=== PATIENT | female | born 1960 | race Caucasian/White ===

== ENCOUNTER 2017-03-19 12:12 | Emergency (ER) | payer MEDICAID ==
[~2017-03-19] VITALS: Ht 167.6 cm; Wt 74.8 kg
== END 2017-03-19 15:04 | disposition home or self-care (01) ==
LOC: ED 12:12
DX: S93.691A Other sprain of right foot, initial encounter (principal); F17.200 Nicotine dependence, unspecified, uncomplicated; W01.0XXA Fall on same level from slipping, tripping and stumbling without subsequent striking against object, initial encounter; Y93.01 Activity, walking, marching and hiking; Y92.89 Other specified places as the place of occurrence of the external cause; Y99.8 Other external cause status

== ENCOUNTER 2017-06-02 19:51 | Emergency (ER) | payer MEDICAID ==
[~2017-06-02] VITALS: Ht 167.6 cm; Wt 74.8 kg
[2017-06-02] MEDS ORDERED: PREDNISONE50 MG PO (20:14)
[2017-06-02] MEDS ORDERED: AVPAK AZITHROM250 M1 PO (20:14)
== END 2017-06-02 20:15 | disposition home or self-care (01) ==
LOC: ED 19:51
DX: J40 Bronchitis, not specified as acute or chronic (principal); F17.200 Nicotine dependence, unspecified, uncomplicated; J02.9 Acute pharyngitis, unspecified

== ENCOUNTER → 2017-06-26 | Outpatient (CLI) | payer OTHER ==
[~2017-06-26] MED LIST: AVPAK AZITHROM250 M1 PO; PREDNISONE50 MG PO
[2017-06-26 15:57] LABS: BASO # 0.1 10*3/uL (0.0-0.1); BASO % 0.5 % (0.0-1.0); EOS # 0.2 10*3/uL (0.0-0.4); EOS % 2.3 % (1.0-4.0); HEMATOCRIT 44.5 % (37.0-47.0); HEMOGLOBIN 14.3 g/dl (12.0-16.0); LYMPH # 4.3 10*3/uL (1.3-4.4); LYMPH % 43.5 % (27.0-41.0); MEAN CELL VOLUME 88.6 fl (81.0-99.0); MEAN CORPUSCULAR HGB 28.5 pg (27.0-31.0); MEAN CORPUSCULAR HGB CONC 32.1 g/dl (33.0-37.0); MEAN PLATELET VOLUME 10.2 fl (9.6-12.3); MONO # 0.6 10*3/uL (0.1-1.0); MONO % 5.8 % (3.0-9.0); NEUT # 4.7 10*3/uL (2.3-7.9); NEUT % 47.6 % (47.0-73.0); PLATELET COUNT AUTOMATED 296 10*3/uL (130-400); RED BLOOD COUNT 5.02 10*6/uL (4.10-5.10); RED CELL DISTRI WIDTH 14.7 % (0-14.5); WHITE BLOOD COUNT 9.8 10*3/uL (4.8-10.8)
[2017-06-26 16:32] LABS: ALBUMIN 3.8 gm/dl (3.1-4.5); BUN 7 mg/dl (7-24); CHLORIDE 104 mmol/L (98-107); POTASSIUM 3.8 mmol/L (3.5-5.1); SODIUM 139 mmol/L (136-145)
[2017-06-26 16:45] LABS: ALKALINE PHOSPHATASE 158 U/L (45-117); CHOLESTEROL 215 mg/dL (<200); CREATININE 0.82 mg/dL (0.55-1.02); HDL CHOLESTEROL 65 mg/dl (40-60); LDL CHOLESTEROL 88 mg/dL (9-159); SGOT/AST 12 IU/L (3-35); SGPT/ALT 23 U/L (12-78); TOTAL PROTEIN 7.3 gm/dL (6.4-8.2); TRIGLYCERIDES 309 mg/dl (<150); VLDL CHOLESTEROL 62 mg/dL (6-40)
== END | disposition home or self-care (01) ==
LOC: RESCLI 01:29 → LAB 01:29 → RESCLI 10:50
PROVIDERS: Internal Medicine
DX: Z76.89 Persons encountering health services in other specified circumstances (principal)

== ENCOUNTER 2017-10-27 08:35 | Emergency (ER) | payer OTHER ==
[~2017-10-27] VITALS: Ht 167.6 cm; Wt 70.3 kg
[2017-10-27] MEDS ORDERED: ZOVIRAX800 MG PO (09:07)
[2017-10-27] MEDS ORDERED: Motrin,Rufen800 MG PO (09:08)
== END 2017-10-27 09:11 | disposition home or self-care (01) ==
LOC: ED 08:35
DX: B02.9 Zoster without complications (principal); Z79.899 Other long term (current) drug therapy

== ENCOUNTER → 2017-11-09 | Outpatient (CLI) | payer OTHER ==
[~2017-11-09] MED LIST changes: +Motrin,Rufen800 MG PO; +ZOVIRAX800 MG PO
== END | disposition home or self-care (01) ==
LOC: RESCLI 07:29
DX: Z12.31 Encounter for screening mammogram for malignant neoplasm of breast (principal); J44.9 Chronic obstructive pulmonary disease, unspecified; G62.9 Polyneuropathy, unspecified; G89.29 Other chronic pain; F14.10 Cocaine abuse, uncomplicated; E78.2 Mixed hyperlipidemia; R23.2 Flushing; M54.5 Low back pain

== ENCOUNTER → 2017-11-16 | Outpatient (CLI) | payer OTHER | END | disposition home or self-care (01) | LOC: RAD 11:55 | DX: M47.897 Other spondylosis, lumbosacral region (principal) ==

== ENCOUNTER → 2017-11-29 | Outpatient (CLI) | payer OTHER | END | disposition home or self-care (01) | LOC: RAD 13:27 → MAMMO 14:00 | DX: Z01.411 Encounter for gynecological examination (general) (routine) with abnormal findings (principal); Z12.31 Encounter for screening mammogram for malignant neoplasm of breast; N95.9 Unspecified menopausal and perimenopausal disorder ==

== ENCOUNTER → 2017-12-31 | Day surgery (SDC) | payer OTHER ==
[2017-12-27 09:39] VITALS: BP 111/75
[~2017-12-31] VITALS: Ht 165.1 cm; Wt 77.1 kg
[~2017-12-31] MED LIST changes: +ALENDRONATE SOD35 M1 PO; +ARTHRITIS PAIN650 M3 PO; +OMEPRAZOLE20 M2 PO; +PERCOCET 5-3251 EACH PO; +PROAIR RESPICL90 MCG INH; +PYRIDIUM200 M1 PO; +VITAMIN D
[2017-12-31 09:50] VITALS: BP 103/58
[2017-12-31 12:00] VITALS: BP 87/50
[2017-12-31 12:15] VITALS: BP 90/53
[2017-12-31 12:30] VITALS: BP 98/57
== END | disposition home or self-care (01) ==
LOC: SDC 12-27 08:45
DX: N87.1 Moderate cervical dysplasia (principal); E78.5 Hyperlipidemia, unspecified; J44.9 Chronic obstructive pulmonary disease, unspecified; M19.90 Unspecified osteoarthritis, unspecified site; G62.9 Polyneuropathy, unspecified; F41.8 Other specified anxiety disorders; Z72.0 Tobacco use; Z90.49 Acquired absence of other specified parts of digestive tract; Z98.890 Other specified postprocedural states; Z98.51 Tubal ligation status; Z79.899 Other long term (current) drug therapy

== ENCOUNTER → 2018-01-09 | Outpatient (CLI) | payer OTHER | END | disposition home or self-care (01) | LOC: LAB 00:10 → MAMMO 00:10 → US 09:30 | DX: K76.89 Other specified diseases of liver (principal); K76.0 Fatty (change of) liver, not elsewhere classified; R92.8 Other abnormal and inconclusive findings on diagnostic imaging of breast; J44.9 Chronic obstructive pulmonary disease, unspecified; Z90.49 Acquired absence of other specified parts of digestive tract ==

== ENCOUNTER → 2018-03-01 | Outpatient (CLI) | payer OTHER ==
[2018-03-01 10:54] LABS: CREATININE 0.83 mg/dL (0.55-1.02)
== END | disposition home or self-care (01) ==
LOC: CT 03:22
PROVIDERS: Radiology Diagnostic Radiology
DX: N28.1 Cyst of kidney, acquired (principal); I70.90 Unspecified atherosclerosis; Z90.49 Acquired absence of other specified parts of digestive tract

== ENCOUNTER → 2018-03-27 | Emergency (ER) | payer OTHER ==
[~2018-03-27] VITALS: Ht 167.6 cm; Wt 79.4 kg
[2018-03-27 02:20] LABS: BASO # 0.1 10*3/uL (0.0-0.1); BASO % 0.7 % (0.0-1.0); EOS # 0.1 10*3/uL (0.0-0.4); EOS % 1.2 % (1.0-4.0); HEMATOCRIT 41.4 % (37.0-47.0); HEMOGLOBIN 14.1 g/dl (12.0-16.0); LYMPH # 4.9 10*3/uL (1.3-4.4); LYMPH % 40.3 % (27.0-41.0); MEAN CELL VOLUME 89.6 fl (81.0-99.0); MEAN CORPUSCULAR HGB 30.5 pg (27.0-31.0); MEAN CORPUSCULAR HGB CONC 34.1 g/dl (33.0-37.0); MEAN PLATELET VOLUME 9.5 fl (9.6-12.3); MONO # 0.8 10*3/uL (0.1-1.0); MONO % 6.8 % (3.0-9.0); NEUT # 6.2 10*3/uL (2.3-7.9); NEUT % 50.8 % (47.0-73.0); PLATELET COUNT AUTOMATED 281 10*3/uL (130-400); RED BLOOD COUNT 4.62 10*6/uL (4.10-5.10); RED CELL DISTRI WIDTH 13.2 % (0-14.5); WHITE BLOOD COUNT 12.2 10*3/uL (4.8-10.8)
[2018-03-27 02:35] LABS: ALBUMIN 3.6 gm/dl (3.1-4.5); ALKALINE PHOSPHATASE 91 U/L (45-117); BUN 12 mg/dl (7-24); CHLORIDE 107 mmol/L (98-107); CREATININE 0.79 mg/dL (0.55-1.02); LIPASE 106 U/L (73-393); POTASSIUM 3.5 mmol/L (3.5-5.1); SGOT/AST 15 IU/L (3-35); SGPT/ALT 25 U/L (12-78); SODIUM 142 mmol/L (136-145); TOTAL PROTEIN 6.8 gm/dL (6.4-8.2)
[2018-03-27 02:36] LABS: ETHYL ALCOHOL < 3.0 mg/dl (<3)
[2018-03-27 04:16] LABS: BILIRUBIN NEGATIVE (NEGATIVE); BLOOD 3+ (NEGATIVE); CLARITY SL CLOUDY (CLEAR); COLOR YELLOW (YELLOW); GLUCOSE NEGATIVE (NEGATIVE); KETONE NEGATIVE (NEGATIVE); LEUKO ESTERASE NEGATIVE (NEGATIVE); NITRITE NEGATIVE (NEGATIVE); PH 5.5 (5.0-9.0); SPECIFIC GRAVITY >= 1.030 (1.005-1.030); UROBILINOGEN 0.2 E.U./dl (0.2-1.0)
[2018-03-27 04:22] LABS: EPITHELIAL CELLS 45-50
[2018-03-27 04:23] LABS: BACTERIA TRACE; CALCIUM OXALATE CRYSTALS 1+; RBC 41-50 rbc/hpf (0-2)
== END ==
LOC: ED 01:48
PROVIDERS: Physician Assistant
DX: N13.2 Hydronephrosis with renal and ureteral calculous obstruction (principal); Z90.49 Acquired absence of other specified parts of digestive tract; Z79.899 Other long term (current) drug therapy

== ENCOUNTER 2018-04-01 11:12 | Emergency (ER) | payer OTHER ==
[~2018-04-01] VITALS: Wt 77.1 kg
[~2018-04-01 11:12] MED LIST changes: -PERCOCET 5-3251 EACH PO; -PYRIDIUM200 M1 PO
[2018-04-01 12:01] LABS: BASO % 0.3 % (0.0-1.0); EOS # 0.2 10*3/uL (0.0-0.4); EOS % 1.7 % (1.0-4.0); HEMATOCRIT 40.5 % (37.0-47.0); HEMOGLOBIN 13.8 g/dl (12.0-16.0); LYMPH # 2.6 10*3/uL (1.3-4.4); LYMPH % 21.9 % (27.0-41.0); MEAN CELL VOLUME 89.6 fl (81.0-99.0); MEAN CORPUSCULAR HGB 30.5 pg (27.0-31.0); MEAN CORPUSCULAR HGB CONC 34.1 g/dl (33.0-37.0); MONO # 0.7 10*3/uL (0.1-1.0); MONO % 5.6 % (3.0-9.0); NEUT # 8.4 10*3/uL (2.3-7.9); NEUT % 70.2 % (47.0-73.0); PLATELET COUNT AUTOMATED 272 10*3/uL (130-400); RED BLOOD COUNT 4.52 10*6/uL (4.10-5.10); RED CELL DISTRI WIDTH 13.1 % (0-14.5)
[2018-04-01 12:10] LABS: ACT PARTIAL THROMBO TIME 26.7 SECONDS (20.8-31.5)
[2018-04-01 12:19] LABS: ALBUMIN 3.6 gm/dl (3.1-4.5); ALKALINE PHOSPHATASE 95 U/L (45-117); BUN 7 mg/dl (7-24); CHLORIDE 108 mmol/L (98-107); CREATININE 0.93 mg/dL (0.55-1.02); LIPASE 83 U/L (73-393); POTASSIUM 3.6 mmol/L (3.5-5.1); SGOT/AST 15 IU/L (3-35); SGPT/ALT 20 U/L (12-78); SODIUM 138 mmol/L (136-145); TOTAL PROTEIN 7.2 gm/dL (6.4-8.2)
[2018-04-01 12:21] LABS: BILIRUBIN NEGATIVE (NEGATIVE); BLOOD 3+ (NEGATIVE); CLARITY CLOUDY (CLEAR); COLOR RED (YELLOW); GLUCOSE NEGATIVE (NEGATIVE); KETONE NEGATIVE (NEGATIVE); NITRITE POSITIVE (NEGATIVE); PH 6.5 (5.0-9.0); UROBILINOGEN 0.2 E.U./dl (0.2-1.0)
[2018-04-01 12:33] LABS: LEUKO ESTERASE TRACE (NEGATIVE)
[2018-04-01 12:36] LABS: BACTERIA 2+; EPITHELIAL CELLS 30-40; RBC TNTC rbc/hpf (0-2); WBC 31-40 wbc/hpf (0-5)
[2018-04-01] MEDS ORDERED: PERCOCET 5-3251 EACH PO (14:16)
[2018-04-01] MEDS ORDERED: PYRIDIUM200 M1 PO (14:16)
== END 2018-04-01 14:20 | disposition home or self-care (01) ==
LOC: ED 11:12
PROVIDERS: Physician Assistant
DX: N39.0 Urinary tract infection, site not specified (principal); N20.0 Calculus of kidney; Z79.899 Other long term (current) drug therapy; Z90.49 Acquired absence of other specified parts of digestive tract

== ENCOUNTER → 2018-04-12 | Outpatient (CLI) | payer OTHER ==
[~2018-04-12] MED LIST changes: +PERCOCET 5-3251 EACH PO; +PYRIDIUM200 M1 PO
[2018-04-12 16:39] LABS: BASO # 0.1 10*3/uL (0.0-0.1); BASO % 0.7 % (0.0-1.0); EOS # 0.3 10*3/uL (0.0-0.4); EOS % 2.8 % (1.0-4.0); HEMATOCRIT 41.5 % (37.0-47.0); HEMOGLOBIN 13.9 g/dl (12.0-16.0); LYMPH # 4.5 10*3/uL (1.3-4.4); LYMPH % 42.6 % (27.0-41.0); MEAN CORPUSCULAR HGB 30.5 pg (27.0-31.0); MEAN CORPUSCULAR HGB CONC 33.5 g/dl (33.0-37.0); MEAN PLATELET VOLUME 10.3 fl (9.6-12.3); MONO # 0.6 10*3/uL (0.1-1.0); MONO % 5.4 % (3.0-9.0); NEUT # 5.2 10*3/uL (2.3-7.9); NEUT % 48.3 % (47.0-73.0); PLATELET COUNT AUTOMATED 369 10*3/uL (130-400); RED BLOOD COUNT 4.56 10*6/uL (4.10-5.10); RED CELL DISTRI WIDTH 13.1 % (0-14.5); WHITE BLOOD COUNT 10.7 10*3/uL (4.8-10.8)
[2018-04-12 16:41] LABS: BILIRUBIN NEGATIVE (NEGATIVE); BLOOD NEGATIVE (NEGATIVE); CLARITY SL CLOUDY (CLEAR); COLOR YELLOW (YELLOW); GLUCOSE NEGATIVE (NEGATIVE); KETONE NEGATIVE (NEGATIVE); LEUKO ESTERASE 1+ (NEGATIVE); NITRITE NEGATIVE (NEGATIVE); SPECIFIC GRAVITY >= 1.030 (1.005-1.030); UROBILINOGEN 0.2 E.U./dl (0.2-1.0)
[2018-04-12 17:30] LABS: ALBUMIN 3.8 gm/dl (3.1-4.5); ALKALINE PHOSPHATASE 118 U/L (45-117); BUN 9 mg/dl (7-24); CHLORIDE 107 mmol/L (98-107); CREATININE 0.78 mg/dL (0.55-1.02); POTASSIUM 3.3 mmol/L (3.5-5.1); SGOT/AST 18 IU/L (3-35); SGPT/ALT 28 U/L (12-78); SODIUM 142 mmol/L (136-145); THYROXINE (T4) TOTAL 11.7 ug/dl (4.8-13.9); TOTAL PROTEIN 7.3 gm/dL (6.4-8.2)
[2018-04-12 17:32] LABS: T3 UPTAKE 30 % (31-39)
[2018-04-12 17:57] LABS: BACTERIA 1+; EPITHELIAL CELLS 16-20; RBC 0-2 rbc/hpf (0-2); WBC 16-20 wbc/hpf (0-5)
== END | disposition home or self-care (01) ==
LOC: LAB 15:21
PROVIDERS: Urology
DX: N20.0 Calculus of kidney (principal); R31.9 Hematuria, unspecified

== ENCOUNTER → 2018-04-14 | Outpatient (CLI) | payer OTHER | END | disposition home or self-care (01) | LOC: LAB 09:45 | PROVIDERS: Urology | DX: N20.0 Calculus of kidney (principal) ==

== ENCOUNTER → 2018-04-17 | Outpatient (CLI) | payer OTHER ==
[~2018-04-17] MED LIST changes: +AUGMENTIN 875875 MG PO; +DIFLUCAN150 MG PO; +DOXYCYCLINE100 MG PO; +LIPITOR10 MG PO; +PREDNISONE20 M1 PO; +PROVENTIL HFA6.7 GM INH; +SPIRIVA RESPIMAT4 GM INH; +TESSALON PERLE100 M1 PO; +TESSALON PERLE100 MG PO; +Ventolin 02.5 MG/3 M INH
== END | disposition home or self-care (01) ==
LOC: US 02:15
DX: N20.0 Calculus of kidney (principal)

== ENCOUNTER → 2018-05-03 | Outpatient (CLI) | payer OTHER ==
[~2018-05-03] MED LIST changes: -AUGMENTIN 875875 MG PO; -PREDNISONE20 M1 PO; -PROVENTIL HFA6.7 GM INH; -TESSALON PERLE100 M1 PO
== END | disposition home or self-care (01) ==
LOC: RESCLI 04:37
DX: J44.9 Chronic obstructive pulmonary disease, unspecified (principal); G62.9 Polyneuropathy, unspecified; G89.29 Other chronic pain; F14.10 Cocaine abuse, uncomplicated; E78.2 Mixed hyperlipidemia; R23.2 Flushing; M54.5 Low back pain; R87.810 Cervical high risk human papillomavirus (HPV) DNA test positive; E55.9 Vitamin D deficiency, unspecified; M81.0 Age-related osteoporosis without current pathological fracture; K21.9 Gastro-esophageal reflux disease without esophagitis; K76.0 Fatty (change of) liver, not elsewhere classified; N87.1 Moderate cervical dysplasia; R13.10 Dysphagia, unspecified; K76.9 Liver disease, unspecified; R92.8 Other abnormal and inconclusive findings on diagnostic imaging of breast; M19.90 Unspecified osteoarthritis, unspecified site; J32.0 Chronic maxillary sinusitis; R68.89 Other general symptoms and signs; M25.561 Pain in right knee; M25.562 Pain in left knee; J40 Bronchitis, not specified as acute or chronic; R73.9 Hyperglycemia, unspecified; F17.210 Nicotine dependence, cigarettes, uncomplicated; Z88.8 Allergy status to other drugs, medicaments and biological substances; Z71.6 Tobacco abuse counseling; Z80.3 Family history of malignant neoplasm of breast

== ENCOUNTER → 2018-05-15 | Outpatient (CLI) | payer OTHER | END | disposition home or self-care (01) | LOC: ORTHO 02:26 | DX: M25.561 Pain in right knee (principal) ==

== ENCOUNTER → 2018-05-17 | Day surgery (SDC) | payer OTHER ==
[~2018-05-17] VITALS: Ht 167.6 cm; Wt 81.6 kg
--- NOTE | ~2018-05-17 | O ---
[place], [place] OPERATIVE NOTE NAME: BRITTA OBRIEN UNIT #: [id number] ROOM: DOCTOR: CONCHITA ALAMO MD BIRTHDATE: [birth year] DOS: 05/17/2018 GASTROENDOSCOPIC REPORT CHIEF COMPLAINT: A 57-year-old patient who has presented with dyspepsia on Prilosec and abdominal pain, nonspecific. Right upper quadrant pain is another complaint. ALLERGIES: No known medication. FAMILY HISTORY: Noncontributory. PAST SURGICAL HISTORY: Tonsillectomy, cholecystectomy, and tubal ligation. PAST MEDICAL HISTORY: Osteoporosis, degenerative joint disease, neuropathy, and COPD. SOCIAL HISTORY: Smoker and social alcohol consumer, and 6 Pepsi per day. PROCEDURE: Today's procedure part of investigation is panendoscopy and colonoscopy. PREMEDICATION: Propofol. SCOPE: Olympus forward-viewing gastroscope Q10 video. REPORT: After putting the patient in left lateral position and application of lubricant to the scope, the scope was introduced. Thereafter, under direct visualization, advanced through the length of esophagus without difficulty. At 25 cm, evidence of long segment semi-lunar abnormal growth extending to about 30 cm was noticed. Gastric pouch was entered. Gastritis seen. Antral biopsy obtained. Duodenal bulb, second and third part within normal limits. Back to the esophagus, multiple biopsies were obtained from the esophagus to rule out esophageal adenocarcinoma. The patient extubated, tolerated the procedure well. IMPRESSION: Esophageal mass, rule out an adenocarcinoma, status post antral biopsy, status post esophageal biopsy. PLAN AND DISCUSSION: We are going to continue with Prilosec until lab results available. Of noticed, the patient has been a smoker and using 6-pack of carbonated sodas per day and social alcohol consumer. Her symptoms have been initially dyspepsia. INDICATIONS: The patient has presented with abdominal pain, right upper quadrant pain, and undergoing investigation. PROCEDURE: Today's procedure part of investigation is colonoscopy. PREMEDICATION: Propofol. [place], [place] OPERATIVE NOTE NAME: BRITTA OBRIEN UNIT #: [id number] ROOM: DOCTOR: CONCHITA ALAMO MD BIRTHDATE: [birth year] SCOPE: Olympus folding colonoscope 10L video. REPORT: After putting the patient in left lateral position and application of lubricant to the scope, the scope was introduced; thereafter, under direct visualization, advanced through the length of colon without difficulty. A sessile polypoid lesion in rectal pouch with piecemeal polypectomy removed. Base of the cecum explored, appendiceal orifice identified, and ileocecal valve was defined. The patient extubated, tolerated the procedure well. IMPRESSION: Sessile colonic polyp located in rectum, status post piecemeal polypectomy. PLAN AND DISCUSSION: Awaiting the biopsy of the esophagus results. A CT scan of the abdomen is going to be organized as well and this patient most likely has adenocarcinoma of the esophagus. Workup from this moment onward continues. CONCHITA ALAMO MD CM:OPRECORD:OPERATIVE NOTE 1252 1547 CONCHITA ALAMO MD 06/12/18 0722 interface
[2018-05-17 10:38] VITALS: BP 102/68
[2018-05-17 12:45] VITALS: BP 103/66
[2018-05-17 13:00] VITALS: BP 115/61
[2018-05-17 13:15] VITALS: BP 117/77
== END | disposition home or self-care (01) ==
LOC: SDC 05-15 08:00
DX: Z12.11 Encounter for screening for malignant neoplasm of colon (principal); K62.1 Rectal polyp; K29.50 Unspecified chronic gastritis without bleeding; K22.8 Other specified diseases of esophagus; M19.90 Unspecified osteoarthritis, unspecified site; M81.0 Age-related osteoporosis without current pathological fracture; F17.210 Nicotine dependence, cigarettes, uncomplicated; J44.9 Chronic obstructive pulmonary disease, unspecified; K21.9 Gastro-esophageal reflux disease without esophagitis; F32.9 Major depressive disorder, single episode, unspecified; Z72.89 Other problems related to lifestyle; Z79.899 Other long term (current) drug therapy; Z90.49 Acquired absence of other specified parts of digestive tract; Z98.51 Tubal ligation status; Z87.442 Personal history of urinary calculi; Z98.890 Other specified postprocedural states; Z82.49 Family history of ischemic heart disease and other diseases of the circulatory system

== ENCOUNTER → 2018-05-21 | Outpatient (CLI) | payer OTHER ==
[2018-05-20 17:08] LABS: BUN 13 mg/dl (7-24)
[~2018-05-21] MED LIST changes: +AUGMENTIN 875875 MG PO; +PREDNISONE20 M1 PO; +PROVENTIL HFA6.7 GM INH; +TESSALON PERLE100 M1 PO
== END | disposition home or self-care (01) ==
LOC: CT 01:47
PROVIDERS: Internal Medicine Gastroenterology
DX: N28.1 Cyst of kidney, acquired (principal); N94.89 Other specified conditions associated with female genital organs and menstrual cycle; C15.9 Malignant neoplasm of esophagus, unspecified; F17.200 Nicotine dependence, unspecified, uncomplicated; Z90.49 Acquired absence of other specified parts of digestive tract

== ENCOUNTER → 2018-06-05 | Day surgery (SDC) | payer OTHER | END | disposition home or self-care (01) | LOC: SDC 06-03 09:30 | DX: K30 Functional dyspepsia (principal); Z53.8 Procedure and treatment not carried out for other reasons ==

== ENCOUNTER 2018-06-16 09:44 | Emergency (ER) | payer OTHER ==
[~2018-06-16] VITALS: Ht 167.6 cm; Wt 83.9 kg
--- NOTE | ~2018-06-16 | EKG ---
[place], [place] ELECTROCARDIOGRAM REPORT NAME: BRITTA OBRIEN UNIT #: [id number] ROOM: DOCTOR: EPIPHANY DRAFT REPORT BIRTHDATE: [birth year] [facility] Test Date: 2018-06-16 Test Time: 10:11:39 Pat Name: BRITTA OBRIEN Department: Room: Gender: F Newspaper Subscription Solicitor: Marlen Harper : 1960 Requested By: DARREL BROWN DNP Order Number: [id number] Reading MD: Amy Ferrera MD Measurements Intervals [place] Rate: 73 P: 51 OR: 116 QRS: 49 QRSD: 82 T: 51 QT: 364 QTc: 401 Interpretive Statements Sinus rhythm Borderline short OR interval No previous ECG available for comparison Electronically Signed On 06-21-2018 9:36:33 PST by Amy Ferrera MD CM:EKGRPT:ELECTROCARDIOGRAM REPORT 1011 0936 DRAREL MASTERS DRAFT REPORT DARREL BROWN DNP
[~2018-06-16 09:44] MED LIST changes: -AUGMENTIN 875875 MG PO; -DIFLUCAN150 MG PO; -DOXYCYCLINE100 MG PO; -PREDNISONE20 M1 PO; -PROVENTIL HFA6.7 GM INH; -TESSALON PERLE100 M1 PO; -TESSALON PERLE100 MG PO
[2018-06-16 10:32] LABS: HEMOGLOBIN 14.8 g/dl (12.0-16.0); MEAN CELL VOLUME 91.3 fl (81.0-99.0); MEAN CORPUSCULAR HGB 30.7 pg (27.0-31.0); MEAN CORPUSCULAR HGB CONC 33.6 g/dl (33.0-37.0); MEAN PLATELET VOLUME 9.8 fl (9.6-12.3); PLATELET COUNT AUTOMATED 264 10*3/uL (130-400); RED BLOOD COUNT 4.82 10*6/uL (4.10-5.10); RED CELL DISTRI WIDTH 14.6 % (0-14.5)
[2018-06-16 10:41] LABS: ACT PARTIAL THROMBO TIME 21.8 SECONDS (20.8-31.5); INTERNATIONAL NORM RATIO 0.9 (2.0-3.5)
[2018-06-16 10:50] LABS: BASOPHILS 1 % (0-1); PLATELET SUFFICIENCY NORMAL (NORMAL); TOTAL CELLS COUNTED 100 #CELLS
[2018-06-16 10:51] LABS: ALBUMIN 3.3 gm/dl (3.1-4.5); ALKALINE PHOSPHATASE 104 U/L (45-117); BUN 12 mg/dl (7-24); CHLORIDE 108 mmol/L (98-107); CREATININE 0.61 mg/dL (0.55-1.02); POTASSIUM 3.9 mmol/L (3.5-5.1); SGOT/AST 11 IU/L (3-35); SGPT/ALT 33 U/L (12-78); SODIUM 139 mmol/L (136-145); TOTAL PROTEIN 6.6 gm/dL (6.4-8.2)
[2018-06-16 10:59] LABS: TROPONIN I < 0.015 ng/ml (<0.045)
[2018-06-16] MEDS ORDERED: TESSALON PERLE100 MG PO (12:30)
[2018-06-16] MEDS ORDERED: DOXYCYCLINE100 MG PO (12:30)
[2018-06-16] MEDS ORDERED: DIFLUCAN150 MG PO (12:30)
[2018-06-16] MEDS ORDERED: PREDNISONE50 MG PO (12:30)
[2018-09-01] MEDS ORDERED: TESSALON PERLE100 M1 PO (22:47)
[2018-09-01] MEDS ORDERED: AUGMENTIN 875875 MG PO (22:47)
[2018-09-01] MEDS ORDERED: PREDNISONE20 M1 PO (22:47)
[2018-09-01] MEDS ORDERED: PROVENTIL HFA6.7 GM INH (22:47)
== END 2018-06-16 12:40 | disposition home or self-care (01) ==
LOC: ED 09:44
PROVIDERS: Nurse Practitioner Family
DX: J44.1 Chronic obstructive pulmonary disease with (acute) exacerbation (principal); B37.9 Candidiasis, unspecified; G62.9 Polyneuropathy, unspecified; F17.200 Nicotine dependence, unspecified, uncomplicated; Z79.899 Other long term (current) drug therapy

== ENCOUNTER → 2018-06-18 | Outpatient (CLI) | payer OTHER ==
[~2018-06-18] MED LIST changes: +AUGMENTIN 875875 MG PO; +DIFLUCAN150 MG PO; +DOXYCYCLINE100 MG PO; +PREDNISONE20 M1 PO; +PROVENTIL HFA6.7 GM INH; +TESSALON PERLE100 M1 PO; +TESSALON PERLE100 MG PO
== END | disposition home or self-care (01) ==
LOC: RESCLI 01:04
DX: R05 Cough (principal); F17.210 Nicotine dependence, cigarettes, uncomplicated; Z71.6 Tobacco abuse counseling; Z79.899 Other long term (current) drug therapy

== ENCOUNTER → 2018-08-19 | Outpatient (CLI) | payer OTHER | END | disposition home or self-care (01) | LOC: RESCLI 00:29 | DX: E78.2 Mixed hyperlipidemia (principal); G62.9 Polyneuropathy, unspecified; J44.9 Chronic obstructive pulmonary disease, unspecified; M54.5 Low back pain; E55.9 Vitamin D deficiency, unspecified; K21.9 Gastro-esophageal reflux disease without esophagitis; F17.210 Nicotine dependence, cigarettes, uncomplicated; Z79.899 Other long term (current) drug therapy; Z90.49 Acquired absence of other specified parts of digestive tract; Z71.6 Tobacco abuse counseling; Z88.8 Allergy status to other drugs, medicaments and biological substances ==

== ENCOUNTER → 2018-11-13 | Outpatient (CLI) | payer OTHER ==
--- NOTE | ~2018-11-13 | SHMRC ---
[place], [place] TH[facility]APY [facility] NAME: BRITTA OBRIEN UNIT #: [id number] ROOM: DOCTOR: DEMI COKER Patient Name: CAMILLE Payne , Date: 11/13/2018 Patient Number: [id number] Treating Therapist:Allison Bradford Patient Date of : 1960 Location: [facility] Patient Reason for Visit RAD/SH Electronic Signature(s) Signed By: Date: Allison Bradford 12/17/2018 14:05:45 Entered By: Allison Bradford on 12/17/2018 14:03:08 Arrival Information Patient Name: CAMILLE Payne , Date: 11/13/2018 Patient Number: [id number] Treating Therapist:Allison Bradford Patient Date of : 1960 Location: [facility] Patient Subjective Document created to generate electronic medical record. Refer to report in [employer] for further information. Electronic Signature(s) Signed By: Date: Allison Bradford 12/17/2018 14:05:45 Entered By: Allison Bradford on 12/17/2018 14:03:08 Medical History Patient Name: CAMILLE Payne , Date: 11/13/2018 Patient Number: [id number] Treating Therapist:Allison Bradford Patient Date of : 1960 Location: [facility] Patient Past Medical History Electronic Signature(s) Signed By: Date: Allison Bradford 12/17/2018 14:05:45 Entered By: Allison Bradford on 12/17/2018 14:03:08 Allergy List Patient Name: CAMILLE Payne , Date: 11/13/2018 Patient Number: [id number] Treating Therapist:Allison Bradford Patient Date of : 1960 Location: [facility] Patient Electronic Signature(s) Signed By: Date: Allison Bradford 12/17/2018 14:05:45 Entered By: Allison Bradford on 12/17/2018 14:03:08 Arrival Information Patient Name: CAMILLE Payne , Date: 11/13/2018 Patient Number: [id number] Treating Therapist:Allison Bradford Patient Date of : 1960 Location: [facility] [place], [place] [facility] NAME: BRITTA OBRIEN UNIT #: [id number] ROOM: DOCTOR: DEMI COKER Patient Subjective Document created to generate electronic medical record. Refer to report in [facility] for further information. Electronic Signature(s) Signed By: Date: Allison Bradford 12/17/2018 14:05:45 Entered By: Allison Bradford on 12/17/2018 14:03:08 SuperBill Patient Name: CAMILLE Payne , Date: 11/13/2018 Patient Number: [id number] Treating Therapist:Allison Bradford Patient Date of : 1960 Location: [facility] Patient Visit Start Time 1:30 PM Visit End Time 2:30 PM Visit Duration 60 minutes Procedures CPT [place] Code Intervention Modifier Minutes Units 11578 [id number] MOTION FLUOROSCOPY/SWALLOW 60 1 Total Timed Minutes 0 Total Treatment Minutes 60 Electronic Signature(s) Signed By: Gerhard: Allison Bradford 12/17/2018 14:05:45 Entered By: Allison Bradford on 12/17/2018 14:05:06 Chief Complaint Patient Name: CAMILLE Payne , Date: 11/13/2018 Patient Number: [id number] Treating Therapist:Allison Bradford Patient Date of : 1960 Location: [facility] Patient Reason for Visit RAD/SH Electronic Signature(s) Signed By: Date: Allison Bradford 12/17/2018 14:05:45 Entered By: Allison Bradford on 12/17/2018 14:03:08 Medical History Patient Name: CAMILLE Payne , Date: 11/13/2018 Patient Number: [id number] Treating Therapist:Allison Bradford Patient Date of : 1960 Location: [facility] Patient Past Medical History Electronic Signature(s) Signed By: Date: Allison Bradford 12/17/2018 14:05:45 Entered By: Allison Bradford on 12/17/2018 14:03:08 Allergy List [place], [place] [facility] NAME: BRITTA OBRIEN UNIT #: [id number] ROOM: DOCTOR: DEMI COKER Patient Name: CAMILLE Payne , Date: 11/13/2018 Patient Number: [id number] Treating Therapist:Allison Bradford Patient Date of : 1960 [facility] Patient Electronic Signature(s) Signed By: Date: Allison Bradford 12/17/2018 14:05:45 Entered By: Allison Bradford on 12/17/2018 14:03:08 CM:CHANEL 1724 1724 [facility]
--- NOTE | ~2018-11-13 | EKG ---
[place], [place] ELECTROCARDIOGRAM REPORT NAME: BRITTA OBRIEN UNIT #: [id number] ROOM: DOCTOR: EPIPHANY DRAFT REPORT BIRTHDATE: [birth year] [facility] Test Date: 2018-11-13 Test Time: 14:49:49 Pat Name: BRITTA OBRIEN Department: Room: Gender: F Healthcare Financial Analyst: Marlen Harper : 1960 Requested By: DEMI COKER Order Number: [id number] Reading MD: Jimenez Lewis Measurements Intervals [place] Rate: 70 P: 58 WI: 129 QRS: 57 QRSD: 84 T: 50 QT: 398 QTc: 430 Interpretive Statements Sinus rhythm Compared to ECG 06/16/2018 10:11:39 No significant changes Electronically Signed On 11-14-2018 6:23:19 PDT by Jimenez Lewis CM:EKGRPT:ELECTROCARDIOGRAM REPORT 1449 0623 DEMI COKER EPIPHANY DRAFT REPORT DEMI COKER
--- NOTE | ~2018-11-13 | SLPPOC ---
[facility] PLAN OF CARE NAME: BRITTA OBRIEN UNIT #: [id number] ROOM: DOCTOR: DEMI COKER Patient Name: BRITTA OBRIEN Date: 11/13/2018 Patient Date of : 1960 [facility] Start of Care: 11/13/2018 Reason for Treatment: RAD/SH Visits since start of care: 1 Primary Care Physician: YAMILETH CLINTON Referring Physician: DEMI COKER Speech-Language Pathology Initial Evaluation Plan of Care Reason for Visit RAD/SH Arrival Information Subjective Document created to generate electronic medical record. Refer to report in [employer] for further information. Medical History Past Medical History Therapist Signature(s) Signed By: Allison Bradford State License #: [id number] 12/17/2018, 2:05 PM Referring Physician Signature I certify the need for these services furnished under this plan of treatment and while under my care. DEMI COKER Date/Time CM:SLPPOC 1724 23 [facility]
--- NOTE | ~2018-11-13 | PROC NOTE ---
[place], [place] PROCEDURE NOTE NAME: BRITTA OBRIEN UNIT #: [id number] ROOM: DOCTOR: NICOLASA BLACK BIRTHDATE: [birth year] DOS: 11/13/2018 MODIFIED BARIUM SWALLOW ORDERING PHYSICIAN: MICHELLE Pierson. RADIOLOGIST: Dr. Larose. BACKGROUND INFORMATION: The patient, a 58-year-old female, was seen for modified barium swallow. This test was conducted as an outpatient. The patient was referred from [facility]. She is diagnosed with esophageal carcinoma and COPD. The patient reported that she is scheduled for surgery on 12/13/2018 to remove 98% of her esophagus. The patient was alert and cooperative throughout the examination. She denied any swallowing difficulty. She reported consuming a regular diet and thin liquid. She did admit to poor intake, stating that she has no appetite and that she would prefer to eat junk foods. Respiratory status was within normal limits on this date. Oral peripheral examination revealed presence of full top denture and partial bottom plate. Lingual, labial, and buccal skills were within normal limits in terms of strength, range of motion, and coordination. The patient was able to volitionally cough and swallow. METHODS AND MATERIALS USED FOR THE EXAM: The patient was positioned in the lateral plane and the exam was viewed under fluoroscopy. The patient was presented with a variety of consistencies to assess swallowing skills, including applesauce mixed with barium presented in half teaspoon amounts, barium-coated cookie and sandwich taken in bite size pieces and thin liquid barium taken independently by cup and straw. ORAL PHASE: Unremarkable. PHARYNGEAL PHASE: Unremarkable. ESOPHAGEAL PHASE: This phase of the swallow was not formally assessed during this exam. IMPRESSIONS AND RECOMMENDATIONS: Based upon assessment results, this 58-year-old patient presents with oral and pharyngeal swallowing skills that are within normal limits. Recommend she remain on a regular diet with use of universal safe swallow precautions. Results and recommendations were shared with the patient and she verbalized understanding. Thank you very much for this referral. Should you have any questions regarding this patient, please contact the speech pathologist at [phone]. [place], [place] PROCEDURE NOTE NAME: BRITTA OBRIEN UNIT #: [id number] ROOM: DOCTOR: NICOLASA BLACK BIRTHDATE: [birth year] NICOLASA BLACK CM:PROCNOTE:PROCEDURE NOTE 1524 0038 NICOLASA BLACK
--- NOTE | ~2018-11-13 | SLPIE ---
[place], [place] AUTOMATIC COIN MACHINE MECHANIC INITIAL EVALUATION NAME: BRITTA OBRIEN UNIT #: [id number] ROOM: DOCTOR: DEMI COKER Patient Name: BRITTA OBRIEN Date: 11/13/2018 Patient Date of : 1960 [facility] Start of Care: 11/13/2018 Reason for Treatment: RAD/SH Primary Care Physician: YAMILETH CLINTON Referring Physician: DEMI COKER Speech-Language Pathology Initial Evaluation Reason for Visit RAD/ Arrival Information Subjective Document created to generate electronic medical record. Refer to report in [employer] for further information. Medical History Past Medical History [facility] Visit Start Time 1:30 PM Visit End Time 2:30 PM Visit Duration 60 minutes Procedures CPT Center Code Intervention Modifier Minutes Units [id number] MOTION FLUOROSCOPY/SWALLOW 60 1 67622 Total Timed Minutes 0 Total Treatment Minutes 60 Therapist Signature(s) Signed By: Allison Bradford [facility] License #: [id number] 12/17/2018, 2:05 PM CM:RAYMOND 1724 1724 [facility]
--- NOTE | ~2018-11-13 | ST ---
[place], [place] EXERCISE STRESS TEST REPORT NAME: BRITTA OBRIEN [facility] #: [id number] UNIT #: [id number] ROOM: DOCTOR: EMILY RAMIREZ,JUDY BIRTHDATE: [birth year] DOS: 11/13/2018 LEXISCAN STRESS TEST REASON FOR TEST: Preoperative evaluation and clearance for surgery per protocol. TEST: Lexiscan stress. PHYSICAL EXAMINATION NECK: Supple. LUNGS: Clear anteriorly. HEART: Regular rhythm. PROTOCOL: Lexiscan protocol. Maximum heart rate 105, peak blood pressure 120/70. SYMPTOMS: The patient is chest pain free. EKG: Resting EKG shows sinus rhythm. Stress EKG showed no ischemia, no arrhythmias. CONCLUSION: Clinically, the patient is chest pain free. EKG nonischemic. POST-STRESS COMPLICATIONS: None. The patient received total of 0.4 mg Lexiscan. JUDY DIAZ MD CM:STRESS:EXERCISE STRESS TEST REPORT 1209 2337 JUDY DIAZ MD
[2018-11-13 15:42] LABS: BASO # 0.1 10*3/uL (0.0-0.1); BASO % 0.5 % (0.0-1.0); EOS # 0.1 10*3/uL (0.0-0.4); EOS % 1.3 % (1.0-4.0); HEMOGLOBIN 14.3 g/dl (12.0-16.0); LYMPH # 3.7 10*3/uL (1.3-4.4); LYMPH % 37.8 % (27.0-41.0); MEAN CELL VOLUME 90.9 fl (81.0-99.0); MEAN CORPUSCULAR HGB 29.5 pg (27.0-31.0); MEAN CORPUSCULAR HGB CONC 32.5 g/dl (33.0-37.0); MEAN PLATELET VOLUME 10.4 fl (9.6-12.3); MONO # 0.5 10*3/uL (0.1-1.0); MONO % 5.4 % (3.0-9.0); NEUT # 5.4 10*3/uL (2.3-7.9); NEUT % 54.7 % (47.0-73.0); PLATELET COUNT AUTOMATED 285 10*3/uL (130-400); RED BLOOD COUNT 4.84 10*6/uL (4.10-5.10); WHITE BLOOD COUNT 9.8 10*3/uL (4.8-10.8)
[2018-11-13 16:08] LABS: BUN 10 mg/dl (7-24); CHLORIDE 107 mmol/L (98-107); CREATININE 0.75 mg/dL (0.55-1.02); POTASSIUM 3.7 mmol/L (3.5-5.1); SODIUM 141 mmol/L (136-145)
== END | disposition home or self-care (01) ==
LOC: CARD 01:49 → LAB 01:49 → RAD/SH 01:49 → CARD 09:00
PROVIDERS: Physician Assistant Medical
DX: C15.9 Malignant neoplasm of esophagus, unspecified (principal); K22.9 Disease of esophagus, unspecified; J44.9 Chronic obstructive pulmonary disease, unspecified; F17.200 Nicotine dependence, unspecified, uncomplicated

== ENCOUNTER → 2018-12-06 | Outpatient (CLI) | payer OTHER ==
--- NOTE | ~2018-12-06 | PF ---
[place], [place] PULMONARY FUNCTION TEST NAME: BRITTA OBRIEN [facility] #: [id number] UNIT #: [id number] ROOM: DOCTOR: STACIA LI MD,DOTTIE BIRTHDATE: [birth year] DOS: BRONCHOSCOPY NOTE The testing physician name was missing. Test was done preoperative for esophagectomy. HISTORY: The patient is a 58-year-old, outpatient, female. Height of 65 inches, weight 185 pounds. She was reported symptoms of frequent wheezing, nonproductive cough and dyspnea with exertion. The patient has known past history of tobacco use. SPIROMETRY: The FVC of 3.37 liters, 83% predicted value. The FEV1 2.66 liters, 83% predicted value. Ratio of FEV1/FVC 80%. Post-bronchodilator FEV1/FVC does not show any significant clinical improvement. Flow volume loop was noted normal. LUNG VOLUME: Thoracic gas volume recorded 101%, residual volume 147%, total lung capacity 98%. The patient's airway resistance and passive conductance normal. Lung diffusion recorded 59%, mildly decreased without correction of carbon monoxide hemoglobin values. FINAL IMPRESSION: Normal pulmonary function test except moderate nonspecific reduction of the lung diffusion, etiology unclear. Clinical correlation was advised. DOTTIE APLOMO MD CM:PFREPORT:PULMONARY FUNCTION TEST 1040 1320 DOTTIE LI MD
== END | disposition home or self-care (01) ==
LOC: CP 14:15
DX: C15.9 Malignant neoplasm of esophagus, unspecified (principal)

== ENCOUNTER 2019-02-05 10:13 | Emergency (ER) | payer OTHER ==
[~2019-02-05] VITALS: Ht 165.1 cm; Wt 72.6 kg
[2019-02-05 10:48] LABS: BASO % 0.5 % (0.0-1.0); EOS # 0.2 10*3/uL (0.0-0.4); EOS % 1.8 % (1.0-4.0); HEMATOCRIT 41.4 % (37.0-47.0); HEMOGLOBIN 13.4 g/dl (12.0-16.0); LYMPH # 2.4 10*3/uL (1.3-4.4); LYMPH % 28.6 % (27.0-41.0); MEAN CELL VOLUME 87.7 fl (81.0-99.0); MEAN CORPUSCULAR HGB 28.4 pg (27.0-31.0); MEAN CORPUSCULAR HGB CONC 32.4 g/dl (33.0-37.0); MEAN PLATELET VOLUME 10.9 fl (9.6-12.3); MONO # 0.4 10*3/uL (0.1-1.0); NEUT # 5.3 10*3/uL (2.3-7.9); NEUT % 63.9 % (47.0-73.0); PLATELET COUNT AUTOMATED 235 10*3/uL (130-400); RED BLOOD COUNT 4.72 10*6/uL (4.10-5.10); RED CELL DISTRI WIDTH 13.1 % (0-14.5); WHITE BLOOD COUNT 8.2 10*3/uL (4.8-10.8)
[2019-02-05 11:02] LABS: ALBUMIN 3.4 gm/dl (3.1-4.5); ALKALINE PHOSPHATASE 95 U/L (45-117); BUN 9 mg/dl (7-24); CHLORIDE 106 mmol/L (98-107); CREATININE 0.81 mg/dL (0.55-1.02); LIPASE 57 U/L (73-393); POTASSIUM 3.1 mmol/L (3.5-5.1); SGOT/AST 19 IU/L (3-35); SGPT/ALT 30 U/L (12-78); SODIUM 141 mmol/L (136-145); TOTAL PROTEIN 6.3 gm/dL (6.4-8.2)
[2019-02-05 12:43] LABS: BILIRUBIN NEGATIVE (NEGATIVE); BLOOD 3+ (NEGATIVE); CLARITY CLOUDY (CLEAR); COLOR YELLOW (YELLOW); GLUCOSE NEGATIVE (NEGATIVE); KETONE NEGATIVE (NEGATIVE); LEUKO ESTERASE NEGATIVE (NEGATIVE); NITRITE NEGATIVE (NEGATIVE); PH 7.5 (5.0-9.0); SPECIFIC GRAVITY <= 1.005 (1.005-1.030); UROBILINOGEN 0.2 E.U./dl (0.2-1.0)
[2019-02-05 13:01] LABS: CALCIUM OXALATE CRYSTALS 1+; RBC TNTC rbc/hpf (0-2)
[2019-02-05 13:02] LABS: BACTERIA TRACE
[2019-02-05] MEDS ORDERED: ZOFRAN4 MG PO (13:28)
[2019-02-05] MEDS ORDERED: NORCO 5-325 TA1 EACH PO (13:28)
[2019-02-05] MEDS ORDERED: FLOMAX0.4 MG PO (13:28)
== END 2019-02-05 13:37 | disposition home or self-care (01) ==
LOC: ED 10:13
PROVIDERS: Physician Assistant
DX: N20.1 Calculus of ureter (principal); R11.2 Nausea with vomiting, unspecified; R10.32 Left lower quadrant pain; Z98.51 Tubal ligation status; Z79.899 Other long term (current) drug therapy; Z87.442 Personal history of urinary calculi

== ENCOUNTER → 2019-02-21 | Outpatient (CLI) | payer OTHER ==
[~2019-02-21] MED LIST changes: +FLOMAX0.4 MG PO; +NORCO 5-325 TA1 EACH PO; +ZOFRAN4 MG PO
[2019-02-21 13:33] LABS: BUN 11 mg/dl (7-24); CHLORIDE 104 mmol/L (98-107); CREATININE 0.66 mg/dL (0.55-1.02); POTASSIUM 3.3 mmol/L (3.5-5.1); SODIUM 138 mmol/L (136-145)
== END | disposition home or self-care (01) ==
LOC: LAB 12:34
PROVIDERS: Thoracic Surgery (Cardiothoracic Vascular Surgery)
DX: K22.8 Other specified diseases of esophagus (principal)

== ENCOUNTER → 2019-03-07 | Outpatient (CLI) | payer OTHER | END | disposition home or self-care (01) | LOC: RESCLI 13:10 | DX: C15.9 Malignant neoplasm of esophagus, unspecified (principal); K21.9 Gastro-esophageal reflux disease without esophagitis; K22.2 Esophageal obstruction; J06.9 Acute upper respiratory infection, unspecified; J44.9 Chronic obstructive pulmonary disease, unspecified; F17.200 Nicotine dependence, unspecified, uncomplicated; Z79.899 Other long term (current) drug therapy ==

== ENCOUNTER → 2019-04-04 | Outpatient (CLI) | payer OTHER ==
[2019-04-04 10:19] LABS: BASO # 0.1 10*3/uL (0.0-0.1); BASO % 0.4 % (0.0-1.0); EOS # 0.2 10*3/uL (0.0-0.4); EOS % 1.6 % (1.0-4.0); HEMATOCRIT 45.4 % (37.0-47.0); HEMOGLOBIN 14.5 g/dl (12.0-16.0); LYMPH # 4.5 10*3/uL (1.3-4.4); LYMPH % 39.8 % (27.0-41.0); MEAN CELL VOLUME 84.1 fl (81.0-99.0); MEAN CORPUSCULAR HGB 26.9 pg (27.0-31.0); MEAN CORPUSCULAR HGB CONC 31.9 g/dl (33.0-37.0); MEAN PLATELET VOLUME 10.3 fl (9.6-12.3); MONO # 0.7 10*3/uL (0.1-1.0); MONO % 6.4 % (3.0-9.0); NEUT # 5.8 10*3/uL (2.3-7.9); NEUT % 51.5 % (47.0-73.0); PLATELET COUNT AUTOMATED 388 10*3/uL (130-400); RED CELL DISTRI WIDTH 15.6 % (0-14.5); WHITE BLOOD COUNT 11.3 10*3/uL (4.8-10.8)
[2019-04-04 10:59] LABS: BILIRUBIN NEGATIVE (NEGATIVE); BLOOD 3+ (NEGATIVE); CLARITY TURBID (CLEAR); COLOR YELLOW (YELLOW); GLUCOSE NEGATIVE (NEGATIVE); KETONE NEGATIVE (NEGATIVE); LEUKO ESTERASE 2+ (NEGATIVE); NITRITE NEGATIVE (NEGATIVE); PH 6.5 (5.0-9.0); SPECIFIC GRAVITY >= 1.030 (1.005-1.030); UROBILINOGEN 0.2 E.U./dl (0.2-1.0)
[2019-04-04 11:12] LABS: ALBUMIN 3.2 gm/dl (3.1-4.5); ALKALINE PHOSPHATASE 105 U/L (45-117); BUN 6 mg/dl (7-24); CHLORIDE 102 mmol/L (98-107); CREATININE 0.91 mg/dL (0.55-1.02); POTASSIUM 2.7 mmol/L (3.5-5.1); SGOT/AST 41 IU/L (3-35); SGPT/ALT 50 U/L (12-78); SODIUM 138 mmol/L (136-145); TOTAL PROTEIN 6.7 gm/dL (6.4-8.2)
[2019-04-04 11:13] LABS: WBC TNTC wbc/hpf (0-5)
== END | disposition home or self-care (01) ==
LOC: LAB 09:53 → CT 11:00
PROVIDERS: Nurse Practitioner Family
DX: K57.30 Diverticulosis of large intestine without perforation or abscess without bleeding (principal); N28.89 Other specified disorders of kidney and ureter; J98.11 Atelectasis; N39.0 Urinary tract infection, site not specified

== ENCOUNTER → 2019-04-09 | Outpatient (CLI) | payer OTHER ==
[~2019-04-09] MED LIST changes: +AMPHETAMINE SAL15 M1 PO; +ESCITALOPRAM OX20 MG PO; +LORAZEPAM1 MG PO; +TRAMADOL HCL50 MG PO
--- NOTE | 2019-04-09 11:31 | NUR ---
SPEECH PATHOLOGY Outpatient MBS completed as per orders to assess safety of swallow. Patient was alert, cooperative and able to provide case history. She stated that she had esophageal cancer and had her esophagus removed 12/13/18. She stated that she initally had a feeding tube placed which was removed in January. She eats orally and consumes a regular diet and thin liquid but stated that she is having significant difficulty, feeling a lump in throat when eating, then vomits her food back up. Weight loss of about 60 lbs was reported. Patient stated that she has undergone multiple esophageal dilations. Oral motor assessment revealed upper and lower denture with adequate fit reported. Lingual/labial and buccal skills were WNL in terms of strength, ROM and coordination. Volitional swallow was adequate. Volitional cough was weak. Patient was assessed with puree, solid and thin liquid consistencies. Results revealed oral and pharyngeal swallowing skills WNL. After the test was completed, patient vomited up material given. Although she is able to swallow the food, she is unable to keep it down, which negatively affects her nutritional and medical status. Recommend follow up with mergers and acquisitions manager to further investigate the esophageal phase of the swallow and determine most appropriate means of nutrition. Patient stated that she is scheduled for a follow up with her surgeon in [place] and she was encouraged to follow through with this appointment and explain the difficulties she has been having. Patient was educated on results and maritza. from this assessment and verbalized understanding. Dictated report to follow. Thank you for this referral. NICOLASA BLACK MSCCC-TRACING LATHE SET UP OPERATOR
--- NOTE | 2019-04-09 12:58 | NUR ---
SPEECH PATHOLOGY Phone call placed to Dr. Álvarez's office, the ordering physician of today's [facility]. Clinician spoke with Maria Teresa and informed her of the results and maritza. of today's study. Fax was also obtained so the doctor can receive a copy of the report. Maria Teresa verbalized understanding of information provided. NICOLASA BLACK MSCCC-JUICE WEIGHER
== END | disposition home or self-care (01) ==
LOC: RAD/SH 10:40
DX: R13.10 Dysphagia, unspecified (principal); Z85.01 Personal history of malignant neoplasm of esophagus

== ENCOUNTER 2019-04-25 14:22 | Inpatient (IN) | payer OTHER ==
[2019-04-25] VITALS (9 sets, daily range): BP systolic 74–89; BP diastolic 42–76
[~2019-04-25] VITALS: Ht 167.6 cm; Wt 62.2 kg
[~2019-04-25 14:22] MED LIST changes: -AMPHETAMINE SAL15 M1 PO; -ESCITALOPRAM OX20 MG PO; -LORAZEPAM1 MG PO; -TRAMADOL HCL50 MG PO
[2019-04-25 18:03] LABS: BASO % 0.2 % (0.0-1.0); EOS # 0.3 10*3/uL (0.0-0.4); EOS % 2.7 % (1.0-4.0); HEMATOCRIT 33.8 % (37.0-47.0); HEMOGLOBIN 11.3 g/dl (12.0-16.0); LYMPH % 10.6 % (27.0-41.0); MEAN CELL VOLUME 85.1 fl (81.0-99.0); MEAN CORPUSCULAR HGB 28.5 pg (27.0-31.0); MEAN CORPUSCULAR HGB CONC 33.4 g/dl (33.0-37.0); MEAN PLATELET VOLUME 9.9 fl (9.6-12.3); MONO # 0.3 10*3/uL (0.1-1.0); MONO % 3.4 % (3.0-9.0); NEUT # 7.9 10*3/uL (2.3-7.9); NEUT % 82.8 % (47.0-73.0); PLATELET COUNT AUTOMATED 201 10*3/uL (130-400); RED BLOOD COUNT 3.97 10*6/uL (4.10-5.10); RED CELL DISTRI WIDTH 16.7 % (0-14.5); WHITE BLOOD COUNT 9.6 10*3/uL (4.8-10.8)
[2019-04-25 18:17] LABS: ALBUMIN 2.1 gm/dl (3.1-4.5); ALKALINE PHOSPHATASE 87 U/L (45-117); BUN 8 mg/dl (7-24); CHLORIDE 103 mmol/L (98-107); LIPASE 12 U/L (73-393); SGOT/AST 12 IU/L (3-35); SGPT/ALT 14 U/L (12-78); SODIUM 139 mmol/L (136-145); TOTAL PROTEIN 4.5 gm/dL (6.4-8.2)
[2019-04-25 18:20] LABS: POTASSIUM 2.2 mmol/L (3.5-5.1)
[2019-04-25 21:02] LABS: BILIRUBIN NEGATIVE (NEGATIVE); BLOOD 3+ (NEGATIVE); CLARITY CLOUDY (CLEAR); COLOR YELLOW (YELLOW); GLUCOSE NEGATIVE (NEGATIVE); KETONE NEGATIVE (NEGATIVE); LEUKO ESTERASE 2+ (NEGATIVE); NITRITE NEGATIVE (NEGATIVE); PH 6.5 (5.0-9.0); SPECIFIC GRAVITY 1.025 (1.005-1.030); UROBILINOGEN 0.2 E.U./dl (0.2-1.0)
[2019-04-25 21:09] LABS: BACTERIA 2+; WBC TNTC wbc/hpf (0-5)
[2019-04-25] MEDS ORDERED: AMPHETAMINE SAL15 M1 PO (23:13)
[2019-04-25] MEDS ORDERED: TRAMADOL HCL50 MG PO (23:13)
[2019-04-25] MEDS ORDERED: ESCITALOPRAM OX20 MG PO (23:14)
[2019-04-25] MEDS ORDERED: LORAZEPAM1 MG PO (23:15)
[2019-04-26] VITALS (8 sets, daily range): BP systolic 64–104; BP diastolic 38–72
[2019-04-26 07:11] LABS: BASO % 0.1 % (0.0-1.0); EOS # 0.4 10*3/uL (0.0-0.4); EOS % 5.9 % (1.0-4.0); HEMATOCRIT 33.1 % (37.0-47.0); HEMOGLOBIN 10.7 g/dl (12.0-16.0); LYMPH # 1.5 10*3/uL (1.3-4.4); LYMPH % 21.4 % (27.0-41.0); MEAN CELL VOLUME 86.2 fl (81.0-99.0); MEAN CORPUSCULAR HGB 27.9 pg (27.0-31.0); MEAN CORPUSCULAR HGB CONC 32.3 g/dl (33.0-37.0); MEAN PLATELET VOLUME 10.7 fl (9.6-12.3); MONO # 0.3 10*3/uL (0.1-1.0); MONO % 4.6 % (3.0-9.0); NEUT # 4.6 10*3/uL (2.3-7.9); NEUT % 67.7 % (47.0-73.0); PLATELET COUNT AUTOMATED 202 10*3/uL (130-400); RED BLOOD COUNT 3.84 10*6/uL (4.10-5.10); RED CELL DISTRI WIDTH 17.1 % (0-14.5); WHITE BLOOD COUNT 6.8 10*3/uL (4.8-10.8)
[2019-04-26 07:38] LABS: BUN 8 mg/dl (7-24); CHLORIDE 108 mmol/L (98-107); CHOLESTEROL 98 mg/dL (<200); CREATININE 0.33 mg/dL (0.55-1.02); HDL CHOLESTEROL 53 mg/dl (40-60); LDL CHOLESTEROL 32 mg/dL (9-159); PHOSPHOROUS 2.4 mg/dL (2.5-4.9); POTASSIUM 2.5 mmol/L (3.5-5.1); SODIUM 143 mmol/L (136-145); TRIGLYCERIDES 65 mg/dl (<150); VLDL CHOLESTEROL 13 mg/dL (6-40)
[2019-04-26 08:02] LABS: VITAMIN D, 25-HYDROXY 49.4 ng/mL (30-100)
== END 2019-04-26 11:47 | disposition left against medical advice (07) | DRG 720 ==
LOC: ED 14:22 → EDHOLD 21:29 → 4E 22:05
PROVIDERS: Internal Medicine; Nurse Practitioner Family; ADMIT Family Medicine
DX: A41.9 Sepsis, unspecified organism (principal); E43 Unspecified severe protein-calorie malnutrition; R65.21 Severe sepsis with septic shock; E87.6 Hypokalemia; E83.42 Hypomagnesemia; R73.9 Hyperglycemia, unspecified; D64.9 Anemia, unspecified; N13.6 Pyonephrosis; Z53.29 Procedure and treatment not carried out because of patient's decision for other reasons; F17.210 Nicotine dependence, cigarettes, uncomplicated; J44.9 Chronic obstructive pulmonary disease, unspecified; Z90.49 Acquired absence of other specified parts of digestive tract; Z83.3 Family history of diabetes mellitus; Z79.899 Other long term (current) drug therapy; Z82.49 Family history of ischemic heart disease and other diseases of the circulatory system; Z98.51 Tubal ligation status; Z68.22 Body mass index [BMI] 22.0-22.9, adult

== ENCOUNTER → 2019-05-15 | Outpatient (CLI) | payer OTHER ==
[~2019-05-15] MED LIST changes: +AMPHETAMINE SAL15 M1 PO; +ESCITALOPRAM OX20 MG PO; +K-TAB20 MEQ PO; +LORAZEPAM1 MG PO; +TRAMADOL HCL50 MG PO
[2019-05-15 15:18] LABS: BASO # 0.1 10*3/uL (0.0-0.1); BASO % 0.9 % (0.0-1.0); EOS # 0.3 10*3/uL (0.0-0.4); EOS % 3.1 % (1.0-4.0); HEMATOCRIT 37.4 % (37.0-47.0); HEMOGLOBIN 11.9 g/dl (12.0-16.0); LYMPH # 4.3 10*3/uL (1.3-4.4); LYMPH % 46.4 % (27.0-41.0); MEAN CELL VOLUME 88.6 fl (81.0-99.0); MEAN CORPUSCULAR HGB 28.2 pg (27.0-31.0); MEAN CORPUSCULAR HGB CONC 31.8 g/dl (33.0-37.0); MEAN PLATELET VOLUME 10.7 fl (9.6-12.3); MONO # 0.5 10*3/uL (0.1-1.0); NEUT # 4.1 10*3/uL (2.3-7.9); NEUT % 44.4 % (47.0-73.0); PLATELET COUNT AUTOMATED 288 10*3/uL (130-400); RED BLOOD COUNT 4.22 10*6/uL (4.10-5.10); RED CELL DISTRI WIDTH 17.7 % (0-14.5); WHITE BLOOD COUNT 9.2 10*3/uL (4.8-10.8)
[2019-05-15 15:35] LABS: ALBUMIN 2.7 gm/dl (3.1-4.5); ALKALINE PHOSPHATASE 88 U/L (45-117); BUN 4 mg/dl (7-24); CHLORIDE 108 mmol/L (98-107); CREATININE 0.48 mg/dL (0.55-1.02); POTASSIUM 2.9 mmol/L (3.5-5.1); SGOT/AST 22 IU/L (3-35); SGPT/ALT 21 U/L (12-78); SODIUM 144 mmol/L (136-145); TOTAL PROTEIN 5.6 gm/dL (6.4-8.2)
== END | disposition home or self-care (01) ==
LOC: US 14:00 → LAB 14:18
PROVIDERS: Urology
DX: N20.0 Calculus of kidney (principal)

== ENCOUNTER → 2019-06-27 | Day surgery (SDC) | payer OTHER ==
[~2019-06-27] VITALS: Ht 167.6 cm; Wt 56.7 kg
[2019-06-27 13:18] VITALS: BP 89/53
[2019-06-27 13:33] VITALS: BP 98/61
[2019-06-27 13:48] VITALS: BP 100/61
== END | disposition home or self-care (01) ==
LOC: SDC 06-23 13:15
DX: K22.2 Esophageal obstruction (principal); F41.9 Anxiety disorder, unspecified; F32.9 Major depressive disorder, single episode, unspecified; J44.9 Chronic obstructive pulmonary disease, unspecified; K21.9 Gastro-esophageal reflux disease without esophagitis; K22.70 Barrett's esophagus without dysplasia; Z98.890 Other specified postprocedural states; Z87.891 Personal history of nicotine dependence; Z79.899 Other long term (current) drug therapy

== ENCOUNTER → 2020-01-28 | Outpatient (CLI) | payer OTHER ==
[2020-01-28 11:44] LABS: BASO # 0.1 10*3/uL (0.0-0.1); BASO % 0.8 % (0.0-1.0); EOS # 0.2 10*3/uL (0.0-0.4); EOS % 2.7 % (1.0-4.0); HEMATOCRIT 41.1 % (37.0-47.0); LYMPH # 2.3 10*3/uL (1.3-4.4); LYMPH % 36.6 % (27.0-41.0); MEAN CELL VOLUME 91.1 fl (81.0-99.0); MEAN CORPUSCULAR HGB 28.6 pg (27.0-31.0); MEAN CORPUSCULAR HGB CONC 31.4 g/dl (33.0-37.0); MEAN PLATELET VOLUME 10.1 fl (9.6-12.3); MONO # 0.3 10*3/uL (0.1-1.0); MONO % 4.4 % (3.0-9.0); NEUT # 3.5 10*3/uL (2.3-7.9); NEUT % 55.2 % (47.0-73.0); PLATELET COUNT AUTOMATED 236 10*3/uL (130-400); RED BLOOD COUNT 4.51 10*6/uL (4.10-5.10); RED CELL DISTRI WIDTH 13.6 % (0-14.5); WHITE BLOOD COUNT 6.3 10*3/uL (4.8-10.8)
[2020-01-28 11:54] LABS: URINE AMPHETAMINES > 1000 (1000ng/ml); URINE BARBITURATES < 200 (200ng/ml); URINE BENZODIAZEPINES < 200 (200ng/ml); URINE CANNABINOIDS (THC) < 50 (50ng/ml); URINE COCAINE < 300 (300ng/ml); URINE METHADONE < 300 (300ng/ml); URINE OPIATES < 300 (300ng/ml)
[2020-01-28 12:05] LABS: URINE PHENCYCLIDINE < 25 (25ng/ml)
[2020-01-28 12:22] LABS: ALBUMIN 3.6 gm/dl (3.1-4.5); ALKALINE PHOSPHATASE 105 U/L (45-117); CHLORIDE 106 mmol/L (98-107); CREATININE 0.88 mg/dL (0.55-1.02); POTASSIUM 3.4 mmol/L (3.5-5.1); SGOT/AST 18 IU/L (3-35); SGPT/ALT 28 U/L (12-78); SODIUM 138 mmol/L (136-145); TOTAL PROTEIN 6.8 gm/dL (6.4-8.2)
[2020-01-28 12:29] LABS: BUN 10 mg/dl (7-24); THYROID STIM HORMONE (HS) 0.554 uIU/ml (0.358-4.75)
== END | disposition home or self-care (01) ==
LOC: LAB 11:19
PROVIDERS: ATTEND Registered Nurse Psychiatric/Mental Health
DX: F41.1 Generalized anxiety disorder (principal)

== ENCOUNTER → 2020-04-28 | Outpatient (CLI) | payer SELFPAY ==
[2020-04-28 14:24] LABS: URINE AMPHETAMINES < 1000 (1000ng/ml); URINE BARBITURATES < 200 (200ng/ml); URINE BENZODIAZEPINES < 200 (200ng/ml); URINE CANNABINOIDS (THC) < 50 (50ng/ml); URINE COCAINE < 300 (300ng/ml); URINE METHADONE < 300 (300ng/ml); URINE OPIATES < 300 (300ng/ml)
[2020-04-28 14:25] LABS: URINE PHENCYCLIDINE < 25 (25ng/ml)
== END | disposition home or self-care (01) ==
LOC: LAB 13:25
PROVIDERS: ATTEND Registered Nurse Psychiatric/Mental Health
DX: F90.0 Attention-deficit hyperactivity disorder, predominantly inattentive type (principal)

== ENCOUNTER 2021-04-29 12:22 | Emergency (ER) | payer OTHER ==
[~2021-04-29] VITALS: Ht 160 cm; Wt 54.4 kg
[2021-04-29 13:29] LABS: BASO % 0.3 % (0.0-1.0); EOS % 0.6 % (1.0-4.0); HEMATOCRIT 40.5 % (37.0-47.0); LYMPH # 1.7 10*3/uL (1.3-4.4); LYMPH % 49.6 % (27.0-41.0); MEAN CELL VOLUME 87.5 fl (81.0-99.0); MEAN CORPUSCULAR HGB 28.7 pg (27.0-31.0); MEAN CORPUSCULAR HGB CONC 32.8 g/dl (33.0-37.0); MEAN PLATELET VOLUME 9.6 fl (9.6-12.3); MONO # 0.3 10*3/uL (0.1-1.0); MONO % 7.4 % (3.0-9.0); NEUT # 1.4 10*3/uL (2.3-7.9); NEUT % 42.1 % (47.0-73.0); PLATELET COUNT AUTOMATED 216 10*3/uL (130-400); RED BLOOD COUNT 4.63 10*6/uL (4.10-5.10); RED CELL DISTRI WIDTH 13.7 % (0-14.5); WHITE BLOOD COUNT 3.4 10*3/uL (4.8-10.8)
[2021-04-29 13:44] LABS: ALBUMIN 2.9 gm/dl (3.1-4.5); ALKALINE PHOSPHATASE 99 U/L (45-117); BUN 13 mg/dl (7-24); CHLORIDE 106 mmol/L (98-107); CREATININE 0.58 mg/dL (0.55-1.02); POTASSIUM 3.4 mmol/L (3.5-5.1); SGOT/AST 21 IU/L (3-35); SGPT/ALT 24 U/L (12-78); SODIUM 138 mmol/L (136-145); TOTAL PROTEIN 6.3 gm/dL (6.4-8.2)
== END 2021-04-29 16:32 | disposition home or self-care (01) ==
LOC: ED 12:22
PROVIDERS: Family Medicine
DX: U07.1 COVID-19 (principal); R11.2 Nausea with vomiting, unspecified; F17.210 Nicotine dependence, cigarettes, uncomplicated; Z79.899 Other long term (current) drug therapy; Z98.890 Other specified postprocedural states; Z90.49 Acquired absence of other specified parts of digestive tract; Z98.1 Arthrodesis status

== ENCOUNTER 2022-09-03 12:26 | Emergency (ER) | payer OTHER ==
[~2022-09-03] VITALS: Ht 165.1 cm; Wt 59.0 kg
[~2022-09-03 12:26] MED LIST changes: +ADDERALL 10 MG10 MG PO; +AMITRIPTYLINE H10 M1 PO; +FOLVITE-D 1,001 EAC1 PO; +MINIPRESS1 MG PO; +NEURONTIN100 MG PO; +PEPCID20 MG PO; +PROTONIX IV40 MG IV; +REGLAN10 M1 PO; +REQUIP2 MG PO
[2022-09-03] MEDS ORDERED: PERCOCET 5-3251 EACH PO (13:04)
[2022-09-03] MEDS ORDERED: SEPTDS PO (13:04)
== END 2022-09-03 13:32 | disposition home or self-care (01) ==
LOC: ED 12:26
DX: J34.0 Abscess, furuncle and carbuncle of nose (principal); Z79.899 Other long term (current) drug therapy; Z90.89 Acquired absence of other organs; Z98.51 Tubal ligation status; Z90.49 Acquired absence of other specified parts of digestive tract; F17.210 Nicotine dependence, cigarettes, uncomplicated

== ENCOUNTER 2022-12-17 18:27 | Emergency (ER) | payer OTHER ==
[~2022-12-17] VITALS: Wt 61.2 kg
[~2022-12-17 18:27] MED LIST changes: +BENZONATATE100 M1 PO; +BREZTRI AEROS10.7 GM INH; +CETIRIZINE HYDR10 MG PO; +CYCLOBENZAPRINE5 M3 PO; +FAMOTIDINE20 M1 PO; +IBU800 M1 PO; +MUCUS RELIEF600 MG PO; +OMEPRAZOLE MAGN20 MG PO; +OMNICEF300 MG PO; +OXYCODONE-ACET1 EAC3 PO; +PANTOPRAZOLE SO40 MG PO; +SEPTDS PO; +SPIRIVA 5 CAPS18 MCG INH
[2022-12-17 19:59] LABS: BASO # 0.1 10*3/uL (0.0-0.1); BASO % 1.1 % (0.0-1.0); EOS # 0.2 10*3/uL (0.0-0.4); EOS % 2.5 % (1.0-4.0); HEMATOCRIT 36.4 % (37.0-47.0); LYMPH # 3.4 10*3/uL (1.3-4.4); LYMPH % 45.8 % (27.0-41.0); MEAN CELL VOLUME 86.3 fl (81.0-99.0); MEAN CORPUSCULAR HGB 26.8 pg (27.0-31.0); MEAN PLATELET VOLUME 9.6 fl (9.6-12.3); MONO # 0.4 10*3/uL (0.1-1.0); MONO % 5.9 % (3.0-9.0); NEUT # 3.3 10*3/uL (2.3-7.9); NEUT % 44.6 % (47.0-73.0); PLATELET COUNT AUTOMATED 363 10*3/uL (130-400); RED BLOOD COUNT 4.22 10*6/uL (4.10-5.10); RED CELL DISTRI WIDTH 16.8 % (0-14.5); WHITE BLOOD COUNT 7.5 10*3/uL (4.8-10.8)
[2022-12-17 20:09] LABS: ACT PARTIAL THROMBO TIME 26.9 SECONDS (20.0-32.1)
[2022-12-17 20:20] LABS: ALKALINE PHOSPHATASE 91 U/L (46-116); BUN 7 mg/dl (9-23); CHLORIDE 105 mmol/L (98-107); LIPASE 24 U/L (12-53); SGPT/ALT 15 U/L (10-49); TOTAL PROTEIN 6.1 gm/dL (6.0-8.0)
[2022-12-17 20:22] LABS: POTASSIUM 2.4 mmol/L (3.4-5.1)
[2022-12-17] MEDS ORDERED: PREDNISONE20 M1 PO (20:58)
== END 2022-12-17 21:05 | disposition home or self-care (01) ==
LOC: ED 18:27
PROVIDERS: Internal Medicine
DX: M54.42 Lumbago with sciatica, left side (principal); M54.41 Lumbago with sciatica, right side; J44.9 Chronic obstructive pulmonary disease, unspecified; F41.9 Anxiety disorder, unspecified; F32.A Depression, unspecified; G62.9 Polyneuropathy, unspecified; Z98.890 Other specified postprocedural states; Z90.49 Acquired absence of other specified parts of digestive tract; F17.210 Nicotine dependence, cigarettes, uncomplicated

== ENCOUNTER 2023-05-13 15:54 | Emergency (ER) | payer OTHER ==
[~2023-05-13] VITALS: Ht 167.6 cm; Wt 70.3 kg
[2023-05-13 16:43] LABS: BASO % 0.4 % (0.0-1.0); EOS % 0.6 % (1.0-4.0); HEMATOCRIT 38.9 % (37.0-47.0); LYMPH # 2.9 10*3/uL (1.3-4.4); LYMPH % 53.9 % (27.0-41.0); MEAN CELL VOLUME 85.1 fl (81.0-99.0); MEAN CORPUSCULAR HGB 25.4 pg (27.0-31.0); MEAN CORPUSCULAR HGB CONC 29.8 g/dl (33.0-37.0); MEAN PLATELET VOLUME 10.4 fl (9.6-12.3); MONO # 0.2 10*3/uL (0.1-1.0); MONO % 4.4 % (3.0-9.0); NEUT # 2.2 10*3/uL (2.3-7.9); NEUT % 40.5 % (47.0-73.0); PLATELET COUNT AUTOMATED 324 10*3/uL (130-400); RED BLOOD COUNT 4.57 10*6/uL (4.10-5.10); RED CELL DISTRI WIDTH 14.6 % (0-14.5); WHITE BLOOD COUNT 5.4 10*3/uL (4.8-10.8)
[2023-05-13 17:09] LABS: ALKALINE PHOSPHATASE 77 U/L (46-116); BUN 13 mg/dl (9-23); CHLORIDE 109 mmol/L (98-107); POTASSIUM 2.9 mmol/L (3.4-5.1); SGPT/ALT 14 U/L (5-49); TOTAL PROTEIN 6.2 gm/dL (6.0-8.0)
[2023-05-13] MEDS ORDERED: PREDNISONE20 M1 PO (17:19)
[2023-05-13] MEDS ORDERED: AVPAK AZITHROM250 M1 PO (17:19)
[2023-05-13] MEDS ORDERED: POTASSIUM CHLO20 ME3 PO (17:19)
[2023-05-13] MEDS ORDERED: POTASSIUM20 MEQ/16 PO (17:42)
== END 2023-05-13 17:25 | disposition home or self-care (01) ==
LOC: ED 15:54
PROVIDERS: Emergency Medicine
DX: J45.901 Unspecified asthma with (acute) exacerbation (principal); E87.6 Hypokalemia; F41.9 Anxiety disorder, unspecified; F32.A Depression, unspecified; Z98.890 Other specified postprocedural states; Z90.49 Acquired absence of other specified parts of digestive tract; Z98.51 Tubal ligation status; F17.210 Nicotine dependence, cigarettes, uncomplicated; Z20.822 Contact with and (suspected) exposure to COVID-19

== ENCOUNTER 2023-06-06 16:27 | Emergency (ER) | payer OTHER ==
[~2023-06-06] VITALS: Wt 56.7 kg
[~2023-06-06 16:27] MED LIST changes: +POTASSIUM CHLO20 ME3 PO; +POTASSIUM20 MEQ/16 PO
[2023-06-06] MEDS ORDERED: Acetaminophen/Oxycodone 5 MG/325 MG TABLET PO ONE (17:45)
[2023-06-06 17:58] LABS: BASO # 0.1 10*3/uL (0.0-0.1); BASO % 0.8 % (0.0-1.0); EOS # 0.5 10*3/uL (0.0-0.4); EOS % 5.4 % (1.0-4.0); HEMATOCRIT 34.9 % (37.0-47.0); LYMPH # 2.6 10*3/uL (1.3-4.4); LYMPH % 26.8 % (27.0-41.0); MEAN CELL VOLUME 83.3 fl (81.0-99.0); MEAN CORPUSCULAR HGB 25.5 pg (27.0-31.0); MEAN CORPUSCULAR HGB CONC 30.7 g/dl (33.0-37.0); MEAN PLATELET VOLUME 10.2 fl (9.6-12.3); MONO # 0.5 10*3/uL (0.1-1.0); NEUT % 61.9 % (47.0-73.0); PLATELET COUNT AUTOMATED 360 10*3/uL (130-400); RED BLOOD COUNT 4.19 10*6/uL (4.10-5.10); RED CELL DISTRI WIDTH 14.7 % (0-14.5); WHITE BLOOD COUNT 9.6 10*3/uL (4.8-10.8)
[2023-06-06 18:06] LABS: BILIRUBIN Negative (Negative); BLOOD Negative (Negative); CLARITY Cloudy (Clear); COLOR Yellow (Yellow); GLUCOSE Negative (Negative); KETONE Negative (Negative); LEUKO ESTERASE Trace (Negative); NITRITE Negative (Negative); SPECIFIC GRAVITY <= 1.005 (1.001-1.030); UROBILINOGEN 0.2 E.U./dl (0.0-1.0)
[2023-06-06 18:17] LABS: ALKALINE PHOSPHATASE 88 U/L (46-116); BUN 10 mg/dl (9-23); CHLORIDE 108 mmol/L (98-107); LIPASE 17 U/L (12-53); POTASSIUM 3.8 mmol/L (3.4-5.1); SGPT/ALT 11 U/L (5-49); TOTAL PROTEIN 5.4 gm/dL (6.0-8.0)
[2023-06-06 18:23] LABS: BACTERIA 2+
[2023-06-06] MEDS ORDERED: methylPREDNISolone sod succ 125 MG VIAL IV ONE (19:45)
[2023-06-06] MEDS ORDERED: Cyclobenzaprine Hydrochlorid 10 MG TAB PO ONE (19:50)
[2023-06-06] MEDS ORDERED: PREDNISONE10 M1 PO (22:15)
[2023-06-06] MEDS ORDERED: CYCLOBENZAPRINE10 MG PO (22:15)
== END 2023-06-06 22:46 | disposition home or self-care (01) ==
LOC: ED 16:27
PROVIDERS: Emergency Medicine
DX: M54.32 Sciatica, left side (principal); J44.9 Chronic obstructive pulmonary disease, unspecified; F41.9 Anxiety disorder, unspecified; F32.A Depression, unspecified; M19.90 Unspecified osteoarthritis, unspecified site; Z98.890 Other specified postprocedural states; Z98.51 Tubal ligation status; Z90.49 Acquired absence of other specified parts of digestive tract

== ENCOUNTER 2023-12-01 08:18 | Inpatient (IN) | payer OTHER ==
[~2023-12-01] VITALS: Ht 165.1 cm; Wt 48.3 kg
[~2023-12-01 08:18] MED LIST changes: +CYCLOBENZAPRINE10 MG PO; +PREDNISONE10 M1 PO
[2023-12-01 08:35] VITALS: BP 102/74
[2023-12-01] MEDS ORDERED: HYDROXYZINE PAM25 M1 PO (08:37)
[2023-12-01] MEDS ORDERED: ACETAMINOPHEN-1 EAC1 PO (08:37)
[2023-12-01] MEDS ORDERED: FEROSUL325 M1 PO (08:38)
[2023-12-01] MEDS ORDERED: SERTRALINE HYDR50 MG PO (08:38)
[2023-12-01] MEDS ORDERED: VITAMIN D3125 MCG PO (08:38)
[2023-12-01] MEDS ORDERED: FAMOTIDINE20 M1 PO (08:38)
[2023-12-01 09:06] LABS: BASO # 0.1 10*3/uL (0.0-0.1); BASO % 0.3 % (0.0-1.0); EOS % 0.1 % (1.0-4.0); HEMATOCRIT 38.3 % (37.0-47.0); LYMPH # 1.3 10*3/uL (1.3-4.4); LYMPH % 8.4 % (27.0-41.0); MEAN CELL VOLUME 80.6 fl (81.0-99.0); MEAN CORPUSCULAR HGB 24.6 pg (27.0-31.0); MEAN CORPUSCULAR HGB CONC 30.5 g/dl (33.0-37.0); MEAN PLATELET VOLUME 9.8 fl (9.6-12.3); MONO # 0.5 10*3/uL (0.1-1.0); MONO % 3.4 % (3.0-9.0); NEUT % 87.2 % (47.0-73.0); PLATELET COUNT AUTOMATED 313 10*3/uL (130-400); RED BLOOD COUNT 4.75 10*6/uL (4.10-5.10); RED CELL DISTRI WIDTH 19.9 % (0-14.5)
[2023-12-01 09:26] LABS: ALKALINE PHOSPHATASE 100 U/L (46-116); BUN 8 mg/dl (9-23); CHLORIDE 104 mmol/L (98-107); POTASSIUM 3.8 mmol/L (3.4-5.1); SGPT/ALT 13 U/L (5-49); TOTAL PROTEIN 6.6 gm/dL (6.0-8.0)
[2023-12-01] MEDS ORDERED: SODIUM CHLORIDE 0.9% 1,000 ML IV SCH (09:35)
[2023-12-01] MEDS ORDERED: Ceftriaxone Sodium 1 GM/10 ML SYR IV ONE (09:35)
[2023-12-01] MEDS ORDERED: AZITHROMYCIN 250 ML IV ONE (09:35)
[2023-12-01] MEDS ORDERED: ACETAMINOPHEN 325 MG TAB PO ONE (10:15)
[2023-12-01] MEDS ORDERED: Acetaminophen/Hydrocodone ES 7.5/325 tablet PO PRN (11:50)
[2023-12-01] MEDS ORDERED: Magnesium Hydroxide 30 ML UDC PO PRN (11:50)
[2023-12-01] MEDS ORDERED: Ondansetron Hydrochloride 4 MG/2 ML VIAL IV PRN (11:50)
[2023-12-01] MEDS ORDERED: BISACODYL 5 MG TAB PO PRN (11:50)
[2023-12-01 12:56] VITALS: BP 103/65
[2023-12-01] MEDS ORDERED: SODIUM CHLORIDE 0.9% 1,000 ML IV ONE (15:20)
[2023-12-01 17:41] VITALS: BP 108/66
[2023-12-01 21:47] VITALS: BP 112/74
[2023-12-02 02:25] VITALS: BP 114/78
[2023-12-02 06:25] LABS: BASO % 0.4 % (0.0-1.0); EOS # 0.3 10*3/uL (0.0-0.4); EOS % 3.1 % (1.0-4.0); HEMATOCRIT 34.9 % (37.0-47.0); LYMPH # 2.8 10*3/uL (1.3-4.4); LYMPH % 25.9 % (27.0-41.0); MEAN CORPUSCULAR HGB CONC 31.2 g/dl (33.0-37.0); MEAN PLATELET VOLUME 10.3 fl (9.6-12.3); MONO # 0.5 10*3/uL (0.1-1.0); MONO % 4.3 % (3.0-9.0); NEUT # 7.1 10*3/uL (2.3-7.9); NEUT % 65.9 % (47.0-73.0); PLATELET COUNT AUTOMATED 283 10*3/uL (130-400); RED BLOOD COUNT 4.36 10*6/uL (4.10-5.10); RED CELL DISTRI WIDTH 19.9 % (0-14.5); WHITE BLOOD COUNT 10.7 10*3/uL (4.8-10.8)
[2023-12-02 06:59] LABS: BUN 9 mg/dl (9-23); CHLORIDE 109 mmol/L (98-107); POTASSIUM 3.6 mmol/L (3.4-5.1)
[2023-12-02] MEDS ORDERED: AZITHROMYCIN 250 ML IV SCH (10:00)
[2023-12-02] MEDS ORDERED: Enoxaparin Sodium 40 MG/0.4 ML SYR SC SCH (10:00)
[2023-12-02] MEDS ORDERED: Ceftriaxone Sodium 1 GM in SYRINGE INFUSION 10 ML IV SCH (10:00)
[2023-12-02] MEDS ORDERED: hydrOXYzine pamoate 25 MG CAP PO PRN (10:15)
[2023-12-02] MEDS ORDERED: Acetaminophen/Codeine Phosph #3 PO PRN (10:20)
[2023-12-02] MEDS ORDERED: MAGNESIUM SULFATE 50 ML IV ONE (10:50)
[2023-12-02] MEDS ORDERED: SODIUM CHLORIDE 0.9% 1,000 ML IV ONE (10:50)
[2023-12-02] MEDS ORDERED: Ketorolac Tromethamine 30 MG/ML VIAL IV ONE (10:50)
[2023-12-02] MEDS ORDERED: diphenhydrAMINE hydrochloride 50 MG/ML VIAL IV ONE (10:55)
[2023-12-02 11:12] VITALS: BP 112/74
[2023-12-02] MEDS ORDERED: GABAPENTIN 100 MG CAP PO SCH (14:00)
[2023-12-02 15:30] VITALS: BP 137/81
[2023-12-02] MEDS ORDERED: ACETAMINOPHEN 325 MG TAB PO PRN (19:50)
[2023-12-02 20:00] VITALS: BP 119/70
[2023-12-03 04:00] VITALS: BP 124/72
[2023-12-03 06:37] LABS: BUN 6 mg/dl (9-23); CHLORIDE 110 mmol/L (98-107); POTASSIUM 3.4 mmol/L (3.4-5.1)
[2023-12-03 06:44] LABS: BASO % 0.5 % (0.0-1.0); EOS # 0.3 10*3/uL (0.0-0.4); EOS % 4.9 % (1.0-4.0); HEMATOCRIT 32.2 % (37.0-47.0); LYMPH # 2.1 10*3/uL (1.3-4.4); LYMPH % 34.7 % (27.0-41.0); MEAN CELL VOLUME 81.5 fl (81.0-99.0); MEAN CORPUSCULAR HGB 25.1 pg (27.0-31.0); MEAN CORPUSCULAR HGB CONC 30.7 g/dl (33.0-37.0); MEAN PLATELET VOLUME 10.8 fl (9.6-12.3); MONO # 0.4 10*3/uL (0.1-1.0); MONO % 6.7 % (3.0-9.0); NEUT # 3.2 10*3/uL (2.3-7.9); NEUT % 52.9 % (47.0-73.0); PLATELET COUNT AUTOMATED 267 10*3/uL (130-400); RED BLOOD COUNT 3.95 10*6/uL (4.10-5.10); RED CELL DISTRI WIDTH 19.6 % (0-14.5)
[2023-12-03 08:00] VITALS: BP 128/65
[2023-12-03] MEDS ORDERED: Ketorolac Tromethamine 15 MG/ML VIAL IV ONE (08:00)
[2023-12-03] MEDS ORDERED: FAMOTIDINE 10 MG TAB PO SCH (10:00)
[2023-12-03] MEDS ORDERED: FERROUS SULFATE 325 MG TAB PO SCH (10:00)
[2023-12-03] MEDS ORDERED: Sertraline Hydrochloride 50 MG TAB PO SCH ×2 (10:00→22:00)
[2023-12-03] MEDS ORDERED: BUTALBITAL PO ONE (11:50)
[2023-12-03] MEDS ORDERED: CAFFEINE PO ONE (11:50)
[2023-12-03] MEDS ORDERED: ACETAMINOPHEN PO ONE (11:50)
[2023-12-03] MEDS ORDERED: Amphetamine Salt Combination 5 MG TAB PO SCH (14:00)
[2023-12-03] MEDS ORDERED: Fioricet 325 MG1 TAB PO (14:39)
[2023-12-03] MEDS ORDERED: ZITHROMAX250 MG PO (14:40)
[2023-12-03] MEDS ORDERED: Metoclopramide Hydrochloride 10 MG/2 ML AMP IV SCH (16:00)
== END 2023-12-03 15:10 | disposition home or self-care (01) | DRG 871 ==
LOC: ED 08:18 → EDHOLD 10:52 → ICCU 10:52
PROVIDERS: Internal Medicine; Student in an Organized Health Care Education/Training Program; ADMIT Internal Medicine; ATTEND Internal Medicine
DX: A41.9 Sepsis, unspecified organism (principal); J15.69 Pneumonia due to other Gram-negative bacteria; J44.0 Chronic obstructive pulmonary disease with (acute) lower respiratory infection; D50.9 Iron deficiency anemia, unspecified; F17.210 Nicotine dependence, cigarettes, uncomplicated; R65.20 Severe sepsis without septic shock; R73.9 Hyperglycemia, unspecified; M54.32 Sciatica, left side; Z82.49 Family history of ischemic heart disease and other diseases of the circulatory system; Z80.0 Family history of malignant neoplasm of digestive organs; Z83.3 Family history of diabetes mellitus; Z85.01 Personal history of malignant neoplasm of esophagus; Z90.49 Acquired absence of other specified parts of digestive tract

== ENCOUNTER 2024-04-14 12:06 | Emergency (ER) | payer OTHER ==
[~2024-04-14] VITALS: Ht 165.1 cm; Wt 56.7 kg
[~2024-04-14 12:06] MED LIST changes: +ACETAMINOPHEN-1 EAC1 PO; +FEROSUL325 M1 PO; +Fioricet 325 MG1 TAB PO; +HYDROXYZINE PAM25 M1 PO; +SERTRALINE HYDR50 MG PO; +VITAMIN D3125 MCG PO; +ZITHROMAX250 MG PO
[2024-04-14] MEDS ORDERED: Ketorolac Tromethamine 30 MG/ML VIAL IV ONE (12:55)
[2024-04-14 14:01] LABS: BASO % 0.5 % (0.0-1.0); EOS # 0.1 10*3/uL (0.0-0.4); EOS % 1.6 % (1.0-4.0); HEMATOCRIT 40.1 % (37.0-47.0); MEAN CELL VOLUME 86.2 fl (81.0-99.0); MEAN CORPUSCULAR HGB 28.4 pg (27.0-31.0); MEAN CORPUSCULAR HGB CONC 32.9 g/dl (33.0-37.0); MONO # 0.5 10*3/uL (0.1-1.0); MONO % 5.9 % (3.0-9.0); NEUT # 4.4 10*3/uL (2.3-7.9); NEUT % 50.3 % (47.0-73.0); PLATELET COUNT AUTOMATED 230 10*3/uL (130-400); RED BLOOD COUNT 4.65 10*6/uL (4.10-5.10); RED CELL DISTRI WIDTH 15.4 % (0-14.5); WHITE BLOOD COUNT 8.7 10*3/uL (4.8-10.8)
[2024-04-14 14:26] LABS: ALKALINE PHOSPHATASE 112 U/L (46-116); BUN 6 mg/dl (9-23); CHLORIDE 108 mmol/L (98-107); SGPT/ALT 22 U/L (5-49); TOTAL PROTEIN 6.4 gm/dL (6.0-8.0)
[2024-04-14 14:27] LABS: POTASSIUM 2.2 mmol/L (3.4-5.1)
[2024-04-14] MEDS ORDERED: POTASSIUM CHLORIDE 20 MEQ TAB PO ONE (14:30)
[2024-04-14] MEDS ORDERED: POTASSIUM CHLO20 ME3 PO (15:16)
[2024-04-14] MEDS ORDERED: CYCLOBENZAPRINE5 M3 PO (15:21)
== END 2024-04-14 15:43 | disposition left against medical advice (07) ==
LOC: ED 12:06
PROVIDERS: Emergency Medicine
DX: S29.011A Strain of muscle and tendon of front wall of thorax, initial encounter (principal); E87.6 Hypokalemia; Z20.822 Contact with and (suspected) exposure to COVID-19; F17.210 Nicotine dependence, cigarettes, uncomplicated; Z79.899 Other long term (current) drug therapy; Z87.442 Personal history of urinary calculi; Z90.49 Acquired absence of other specified parts of digestive tract; Z53.29 Procedure and treatment not carried out because of patient's decision for other reasons; X50.1XXA Overexertion from prolonged static or awkward postures, initial encounter; Y93.89 Activity, other specified; Y92.89 Other specified places as the place of occurrence of the external cause; Y99.8 Other external cause status